=== PATIENT | male | born 1995 | race Caucasian/White ===

== ENCOUNTER 2017-04-08 08:30 | Outpatient (RCR) | payer BC, SELFPAY | END 2017-04-08 08:31 | disposition home or self-care (01) | LOC: PT 08:30 | PROVIDERS: Family Provider Family Medicine; Visit Provider Orthopaedic Surgery | DX: M25.561 Pain in right knee (principal) | CPT/HCPCS: 97110; 97112; 97164 ==

== ENCOUNTER → 2021-06-26 10:58 | Outpatient (CLI) | payer BC, OTHER, SELFPAY ==
--- NOTE | 2021-06-26 11:04 | XR_ITS ---
FINAL REPORT CLINICAL HISTORY: Foreign Body, marked with paper clip; FINDINGS: Two views of the chest were obtained. The heart size and pulmonary vascularity are within normal limits. No acute pulmonary abnormality is identified. There is no pneumothorax. There are postoperative changes of the right clavicle. There is a 3 mm linear foreign body in the left anterior thorax soft tissues. IMPRESSION: Linear foreign body in the left anterior thorax soft tissues measuring 3 mm. No active cardiopulmonary disease. Reviewed, Interpreted and Dictated by Dionte Galvez III, MD Transcribed by Ruthie Cortez Authenticated by Dionte Galvez III, MD on 06/26/2021 12:54:46 PM [facility]
== END ==
PROVIDERS: PCP Family Medicine; Visit Provider Surgery
DX: M79.5 Residual foreign body in soft tissue (principal)
CPT/HCPCS: 71046

== ENCOUNTER → 2021-07-25 07:38 | Outpatient (CLI) | payer BC, OTHER, SELFPAY | PROVIDERS: PCP Family Medicine; Visit Provider Nurse Practitioner Family | DX: G47.30 Sleep apnea, unspecified (principal); R06.83 Snoring; R06.81 Apnea, not elsewhere classified | CPT/HCPCS: G0399 ==

== ENCOUNTER → 2021-12-03 07:58 | Outpatient (CLI) | payer BC, SELFPAY | PROVIDERS: PCP Family Medicine; Visit Provider Specialist | DX: G47.30 Sleep apnea, unspecified (principal) | CPT/HCPCS: G0399 ==

== ENCOUNTER → 2022-03-17 07:22 | Outpatient (CLI) | payer BC, SELFPAY | PROVIDERS: PCP Family Medicine; Visit Provider Specialist | DX: G47.30 Sleep apnea, unspecified (principal); G47.26 Circadian rhythm sleep disorder, shift work type; R06.83 Snoring; E66.9 Obesity, unspecified; Z68.35 Body mass index [BMI] 35.0-35.9, adult | CPT/HCPCS: 95810 ==